=== PATIENT | female | born 1930 | race Caucasian/White ===

== ENCOUNTER 2018-02-13 12:03 | Emergency (ER) | payer MEDICARE, OTHER ==
--- NOTE | 2018-02-13 14:11 | EDM.PDOC ---
ED HPI GENERAL MEDICAL PROBLEM - General Chief Complaint: Upper Extremity Injury/Pain Stated Complaint: right wrist pain Time Seen by Provider: 02/13/18 12:07 Source of Information: Reports: Patient History Limitations: Reports: No Limitations - History of Present Illness INITIAL COMMENTS - FREE TEXT/NARRATIVE: Pt. presents to ER with complaints of R wrist pain post fall. She states that the pain is located in dorsum of the wrist. Denies striking her head. No neck pain. Pt. states that she is not experiencing any numbness/tingling in her R upper extremity. Onset: Today Onset Date: 02/13/18 Onset Time: 06:30 Location: Reports: Upper Extremity, Right Quality: Reports: Ache, Throbbing Severity: Mild Improves with: Reports: None, Rest Worsens with: Reports: Movement Context: Reports: Trauma Right Wrist Pain Score (Numeric/FACES): 4 - Related Data Allergies Allergy/AdvReac Type Severity Reaction Status Date / Time No Known Allergies Allergy Verified 02/13/18 12:06 Home Meds: Home Meds Timolol [Betimol] 5 ml OP DAILY 08/22/14 [History] Sennosides/Docusate Sodium [Senna-Docusate Sodium] 1 each PO DAILY #30 tablet [Rx] Acetaminophen [Tylenol] 2 tab PO ASDIRECTED PRN 02/13/18 [History] Brinzolamide/Brimonidine Tart [Simbrinza 1%-0.2% Eye Drops] 8 ml OP ASDIRECTED 02/13/18 [History] Carboxymethylcellulose Sodium [Refresh Liquigel 1% Ophth Soln] 15 ml OP ASDIRECTED 02/13/18 [History] Dextromethorphan Polistirex [Delsym] 30 mg PO ASDIRECTED 02/13/18 [History] Diphenoxylate HCl/Atropine [Diphenoxylate-Atrop 2.5-0.025] 1 each PO ASDIRECTED 02/13/18 [History] Memantine [Namenda] 10 mg PO BID 02/13/18 [History] Multivitamin [Daily Multiple Vitamin] 1 each PO DAILY 02/13/18 [History] Naproxen Sodium [Aleve] 220 mg PO ASDIRECTED 02/13/18 [History] Past Medical History HEENT History: Reports: Impaired Vision Neurological History: Reports: Alzheimers Disease Social & Family History - Tobacco Use Smoking Status *Q: Never Smoker Review of Systems - Review of Systems Review Of Systems: See Below Musculoskeletal: Reports: Joint Pain (R wrist) Neurological: Reports: No Symptoms ED EXAM, GENERAL - Physical Exam Exam: See Below Exam Limited By: No Limitations General Appearance: Alert, WD/WN, No Apparent Distress Peripheral Pulses: 4+: Radial (L), Radial (R) Extremities: Joint Swelling, Arm Pain (R wrist), Limited Range of Motion Neurological: Alert, Oriented, CN II-XII Intact, Normal Cognition, Normal Gait, Normal Reflexes, No Motor/Sensory Deficits Skin Exam: Warm, Dry, Intact, Normal Color, No Rash Course - Vital Signs Last Recorded V/S: Last Vital Signs Temp 36.1 C 02/13/18 12:07 Pulse 52 L 02/13/18 12:07 Resp 18 02/13/18 12:07 BP 176/83 H 02/13/18 12:07 Pulse Ox 96 02/13/18 12:07 - Orders/Labs/Meds Orders: Active Orders 24 hr Category Date Time Status Wrist Comp Min 3V Rt [CR] Stat Exams 02/13/18 12:18 Taken Departure - Departure Time of Disposition: 13:25 Disposition: Home, Self-Care 01 Condition: Good Clinical Impression: Buckle fracture of distal end of right radius - Discharge Information Instructions: Wrist Splint, Adult, Wrist Fracture Treated With Immobilization, Cast or Splint Care, Adult Referrals: Kavita Bullard DO [Primary Care Provider] - Forms: ED Department Discharge Additional Instructions: Keep splint on all the time. Follow-up in clinic in 7 days for recheck. Tylenol 650mg every 4-6 hours. - My Orders Last 24 Hours: My Active Orders 02/13/18 12:18 Wrist Comp Min 3V Rt [CR] Stat - Assessment/Plan Last 24 Hours: My Active Orders 02/13/18 12:18 Wrist Comp Min 3V Rt [CR] Stat
== END 2018-02-13 13:25 | disposition home or self-care (01) ==
LOC: VM.ED 12:03
DX: S52.501A Unspecified fracture of the lower end of right radius, initial encounter for closed fracture (principal); Z79.899 Other long term (current) drug therapy; W19.XXXA Unspecified fall, initial encounter
CPT/HCPCS: 73110-RT; 99283

== ENCOUNTER 2018-06-10 17:47 | Emergency (ER) | payer MEDICARE, OTHER ==
[2018-06-10] MEDS ORDERED: Sodium Chloride 0.9% 10 ML Syringe FLUSH PRN (17:55)
[2018-06-10] MEDS ORDERED: Ondansetron 4 MG/2 ML SDV IVPUSH ONE (17:55)
[2018-06-10] MEDS ORDERED: Morphine 2 MG/ML Syringe IVPUSH ONE ×2 (17:55→19:22)
--- NOTE | 2018-06-10 18:15 | EDM.PDOC ---
ED HPI GENERAL MEDICAL PROBLEM - General Chief Complaint: Lower Extremity Injury/Pain Stated Complaint: right hip pain Time Seen by Provider: 06/10/18 17:47 Source of Information: Reports: Patient - History of Present Illness INITIAL COMMENTS - FREE TEXT/NARRATIVE: Patient comes into the emergency department by EMS with complaint of right hip pain. Posttraumatic fall from the seated position. Patient was on her way to the dining room for [employer] and ended up falling out of her chair after she was reaching for her walker/wheelchair device. Patient denies hitting her head or losing consciousness. Staff were present at the time of the fall. She states that she noticed that she had right hip pain instantly after she fell. She states that she is unable to complete range of motion. She states that she did not hear any pop or snap when she hit the floor. EMS was contacted and patient was transported by backboard. Pt is a poor historian for she has advance dementia. Staff noted the pain and called EMS and did not try to move her. Last ate 3pm according to jail staff Onset: Sudden Location: Reports: Lower Extremity, Right Quality: Reports: Sharp, Stabbing Improves with: Reports: Immobilization Worsens with: Reports: None Associated Symptoms: Denies: Confusion, Diaphoresis, Nausea/Vomiting, Shortness of Breath, Syncope, Weakness - Related Data Allergies Allergy/AdvReac Type Severity Reaction Status Date / Time mivacurium Allergy Cannot Verified 06/10/18 19:29 Remember succinylcholine Allergy Cannot Verified 06/10/18 19:29 Remember sulfamethoxazole Allergy Cannot Verified 06/10/18 19:29 [From Bactrim] Remember trimethoprim [From Bactrim] Allergy Cannot Verified 06/10/18 19:29 Remember Home Meds: Home Meds Timolol [Betimol] 1 drop EYEBOTH DAILY 08/22/14 [History] Acetaminophen [Tylenol] 2 tab PO ASDIRECTED PRN 02/13/18 [History] Brinzolamide/Brimonidine Tart [Simbrinza 1%-0.2% Eye Drops] 8 ml EYEBOTH TID [History] Carboxymethylcellulose Sodium [Refresh Liquigel 1% Ophth Soln] 1 drop EYELF DAILY 02/13/18 [History] Dextromethorphan Polistirex [Delsym] 30 mg PO ASDIRECTED PRN 02/13/18 [History] Diphenoxylate HCl/Atropine [Diphenoxylate-Atrop 2.5-0.025] 1 each PO ASDIRECTED PRN 02/13/18 [History] Memantine [Namenda] 10 mg PO BID 02/13/18 [History] Multivitamin [Daily Multiple Vitamin] 1 each PO DAILY 02/13/18 [History] Naproxen Sodium [Aleve] 220 mg PO ASDIRECTED PRN 02/13/18 [History] Escitalopram [Lexapro] 20 mg PO DAILY 06/10/18 [History] Sennosides/Docusate Sodium [Senna-Docusate Sodium] 1 each PO DAILY PRN 06/10/18 [History] Past Medical History HEENT History: Reports: Impaired Vision Neurological History: Reports: Alzheimers Disease Review of Systems - Review of Systems Review Of Systems: See Below Constitutional: Reports: No Symptoms Eyes: Reports: No Symptoms Ears: Reports: No Symptoms Nose: Reports: No Symptoms Mouth/Throat: Reports: No Symptoms Respiratory: Reports: No Symptoms Cardiovascular: Reports: No Symptoms GI/Abdominal: Reports: No Symptoms Genitourinary: Reports: No Symptoms Musculoskeletal: Reports: Leg Pain Skin: Reports: No Symptoms Neurological: Reports: No Symptoms Psychiatric: Reports: No Symptoms ED EXAM, GENERAL - Physical Exam Exam: See Below Exam Limited By: No Limitations General Appearance: Alert, WD/WN, No Apparent Distress Eye Exam: Bilateral Eye: EOMI, PERRL Head: Atraumatic, Normocephalic Neck: Normal Inspection, Supple, Non-Tender, Full Range of Motion. No: Limited Range of Motion, Lymphadenopathy (L), Lymphadenopathy (R) Respiratory/Chest: No Respiratory Distress, Normal Breath Sounds, No Accessory Muscle Use Cardiovascular: Normal Peripheral Pulses, Regular Rate, Rhythm, No Edema Peripheral Pulses: 3+: Posterior Tibial (L), Posterior Tibial (R), Dorsalis Pedis (L), Dorsalis Pedis (R) GI/Abdominal: Normal Bowel Sounds, Soft, Non-Tender, No Distention Extremities: Normal Inspection, Normal Range of Motion, Non-Tender, No Pedal Edema, Normal Capillary Refill, Leg Pain (right hip pain- very limited ROM, pain upon palpation to right hip and greater trocanter region. No deformity or shortening noted), Limited Range of Motion (right hip extreme limitation ) Neurological: Alert, Other (disoriented to place and time aware of who she was and could discuss her past with ease) Skin Exam: Warm, Dry, Intact Course - Vital Signs Last Recorded V/S: Last Vital Signs Temp 37.7 C 06/10/18 18:00 Pulse 68 06/10/18 18:45 Resp 16 06/10/18 18:45 BP 148/80 H 06/10/18 18:45 Pulse Ox 95 06/10/18 18:45 - Orders/Labs/Meds Orders: Active Orders 24 hr Category Date Time Status Hip Min 1V w Pelvis Rt [CR] Stat Exams 06/10/18 17:55 Taken Sodium Chloride 0.9% [Normal Saline] 1,000 ml Med 06/10/18 19:30 Active IV ASDIRECTED Sodium Chloride 0.9% [Saline Flush] Med 06/10/18 17:55 Active 10 ml FLUSH ASDIRECTED PRN Peripheral IV Insertion Adult [OM.PC] Stat Oth 06/10/18 17:55 Ordered Medication Orders Sodium Chloride (Normal Saline) 1,000 mls @ 125 mls/hr IV ASDIRECTED MORGAN Last Admin: 06/10/18 19:31 Dose: 125 mls/hr Sodium Chloride (Saline Flush) 10 ml FLUSH ASDIRECTED PRN PRN Reason: Keep Vein Open Labs: Laboratory Tests 06/10/18 06/10/18 06/10/18 Range/Units 18:08 18:08 18:08 WBC 6.9 (4.0-10.0) x10^3/uL RBC 4.31 (4.00-5.50) x10^6/uL Hgb 14.1 (12.0-16.0) g/dL Hct 40.6 (33.0-47.0) % MCV 94.2 H (78.0-93.0) fL MCH 32.7 H (26.0-32.0) pg MCHC 34.7 (32.0-36.0) g/dL RDW Coeff of Rick 12.7 (10.0-15.0) % Plt Count 148 (130-400) x10^3/uL Neut % (Auto) 50.6 (50.0-80.0) % Lymph % (Auto) 37.2 (25.0-50.0) % [place] % (Auto) 10.8 (2.0-11.0) % Eos % (Auto) 1.0 (0.0-4.0) % Baso % (Auto) 0.4 (0.2-1.2) % PT 9.5 L (9.6-11.4) SEC INR 0.9 L (2.0-3.5) Sodium 140 (136-145) mmol/L Potassium 3.8 (3.5-5.1) mmol/L Chloride 103 (98-107) mmol/L Carbon Dioxide 29 (21-32) mmol/L Anion Gap 11.8 (10-20) mmol/L BUN 17 (7-18) mg/dL Creatinine 1.0 (0.55-1.02) mg/dL Est Cr Clr Drug Dosing TNP Estimated GFR (MDRD) 53 Glucose 112 H (74-106) mg/dL Calcium 8.6 (8.5-10.1) mg/dL Corrected Calcium 9.08 (8.5-10.1) mg/dL Total Bilirubin 0.4 (0.2-1.0) mg/dL AST 17 (15-37) U/L ALT 24 (14-59) U/L Alkaline Phosphatase 79 (46-116) U/L Total Protein 7.4 (6.4-8.2) g/dL Albumin 3.4 (3.4-5.0) g/dL Globulin 4.0 Albumin/Globulin Ratio 0.85 Meds: Medications Generic Name Dose Route Start Last Admin Trade Name Freq PRN Reason Stop Dose Admin Sodium Chloride 1,000 mls @ 125 mls/hr 06/10/18 19:30 06/10/18 19:31 Normal Saline IV 125 mls/hr ASDIRECTED MORGAN Administration Sodium Chloride 10 ml 06/10/18 17:55 Saline Flush FLUSH ASDIRECTED PRN Keep Vein Open Discontinued Medications Generic Name Dose Route Start Last Admin Trade Name Freq PRN Reason Stop Dose Admin Morphine Sulfate 1 mg 06/10/18 17:55 06/10/18 18:12 Morphine IVPUSH 06/10/18 17:56 1 mg ONETIME ONE Administration Morphine Sulfate 1 mg 06/10/18 19:22 06/10/18 19:27 Morphine IVPUSH 06/10/18 19:23 1 mg ONETIME ONE Administration Ondansetron HCl 4 mg 06/10/18 17:55 06/10/18 18:10 Zofran IVPUSH 06/10/18 17:56 4 mg ONETIME ONE Administration Departure - Departure Time of Disposition: 19:45 Disposition: DC/Tfer to Acute Hospital 02 Condition: Fair Clinical Impression: Fracture of pelvis - Discharge Information *PRESCRIPTION DRUG MONITORING PROGRAM REVIEWED*: Not Applicable *COPY OF PRESCRIPTION DRUG MONITORING REPORT IN PATIENT CARY: Not Applicable Referrals: Kavita Bullard DO [Primary Care Provider] - Forms: Interfacility Transfer EMTALA, ED Department Discharge - My Orders Last 24 Hours: My Active Orders 06/10/18 17:55 Hip Min 1V w Pelvis Rt [CR] Stat Sodium Chloride 0.9% [Saline Flush] 10 ml FLUSH ASDIRECTED PRN Peripheral IV Insertion Adult [OM.PC] Stat 06/10/18 19:30 Sodium Chloride 0.9% [Normal Saline] 1,000 ml IV ASDIRECTED - Assessment/Plan Last 24 Hours: My Active Orders 06/10/18 17:55 Hip Min 1V w Pelvis Rt [CR] Stat Sodium Chloride 0.9% [Saline Flush] 10 ml FLUSH ASDIRECTED PRN Peripheral IV Insertion Adult [OM.PC] Stat 06/10/18 19:30 Sodium Chloride 0.9% [Normal Saline] 1,000 ml IV ASDIRECTED Assessment:: 1. Right hip pain Plan: 1. Labs completed in ER results discussed with pt and son 2. X-ray completed in ER results discussed with the pt and son 3. IV started with pain and anti-nausea medication given 5. Pelvic girdle applied for pelvis stability 4. Consult completed with [facility] orthopedic surgeon: Dr. Ramos did agree- this pt needed higher level of care and surgical intervention Medical services with admit the pt.
[2018-06-10 18:40] LABS: CHLORIDE,CL 103 mmol/L (98-107); SODIUM,NA 140 mmol/L (136-145)
[2018-06-10 18:41] LABS: ANION GAP 11.8 mmol/L (10-20)
[2018-06-10] MEDS ORDERED: Sodium Chloride 0.9% 1,000 ML IV SCH (19:30)
== END 2018-06-10 20:43 | disposition short-term general hospital (02) ==
LOC: VM.ED 17:47
DX: S32.9XXA Fracture of unspecified parts of lumbosacral spine and pelvis, initial encounter for closed fracture (principal); Z88.8 Allergy status to other drugs, medicaments and biological substances; Z79.899 Other long term (current) drug therapy; W17.89XA Other fall from one level to another, initial encounter
CPT/HCPCS: 36415; 73501; 80053; 85025; 85610; 96365; 96375; 96376; 99285; J2270; J2405; J7030